=== PATIENT | female | born 1950 | race Caucasian/White ===

== ENCOUNTER → 2018-07-28 13:03 | Outpatient (CLI) | payer MEDICARE, SELFPAY ==
--- NOTE | 2018-07-28 | DI.RAD.S_ITS ---
PROCEDURE: XR KNEE RT 3V INDICATIONS: RIGHT KNEE PAIN TECHNIQUE: 3 views of the knee were acquired. COMPARISON: None. FINDINGS: Bones: No fractures or dislocations. No suspicious bony lesions. Soft tissues: Small joint effusion. No suspicious soft tissue calcifications. IMPRESSION: Small right knee joint effusion. No acute osseous abnormality of the right knee. Dictated by: Yared Akhtar M.D. on 07/28/2018 at 17:29 Approved by: Yared Akhtar M.D. on 07/28/2018 at 17:32
== END ==
PROVIDERS: Visit Provider Family Medicine
DX: M25.561 Pain in right knee (principal); M25.461 Effusion, right knee
CPT/HCPCS: 73562

== ENCOUNTER → 2018-12-04 14:07 | Outpatient (CLI) | payer MEDICARE, SELFPAY ==
[2018-12-04 15:05] LABS: Add Manual Diff / Slide Review NO; Basophils Percent Auto 0.8 % (0-2); Eosinophils Percent Auto 1.4 % (2-4); Hematocrit 42.4 % (36-46); Hemoglobin 14.2 g/dL (12.0-16.0); Lymphocytes Percent Auto 23.5 % (25-40); Mean Corpuscular HGB Conc 33.4 % (30-36); Mean Corpuscular Hemoglobin 31.4 PG (26-34); Monocytes Percent Auto 6.3 % (3-14); Neutrophils Absolute Auto 4100 /uL (1500-7000); Platelet Count 302 X10^3/uL (150-400); Red Blood Cell Count 4.51 X10^6/uL (4.0-5.2); Red Cell Distribution Width 14.4 % (11.6-14.8)
[2018-12-04 15:26] LABS: Alanine Aminotransferase 39 IU/L (9-52); Albumin 4.3 g/dL (3.5-5.0); Albumin Globulin Ratio 1.4 (1.0-2.8); Alkaline Phosphatase 85 U/L (38-126); Aspartate Aminotransferase 37 IU/L (14-36); Bilirubin Total 0.4 mg/dL (0.2-1.3); Blood Urea Nitrogen 18 mg/dL (7-17); Calcium 9.4 mg/dL (8.4-10.2); Carbon Dioxide 29 mmol/L (22-32); Chloride 104 mmol/L (98-107); Cholesterol 189 mg/dL (140-199); Globulin 3.1 g/dL (1.7-4.1); Glucose 88 mg/dL (80-110); HDL Cholesterol 55 mg/dL (40-60); HEMOLYSIS < 15 (0-50); LDL Cholesterol Calculated 112 mg/dL (<100); Potassium 4.2 mmol/L (3.4-5.1); Sodium 142 mmol/L (137-145); Total Protein 7.4 g/dL (6.3-8.2); Triglycerides 111 mg/dL (35-150)
[2018-12-04 15:42] LABS: Free T3, Triiodothyronine Free 4.49 pg/mL (2.77-5.27); Free T4, Direct Thyroxine 1.51 ng/dL (0.78-2.19)
== END ==
PROVIDERS: Family Provider Obstetrics & Gynecology; PCP Family Medicine; Visit Provider Family Medicine
DX: M85.80 Other specified disorders of bone density and structure, unspecified site (principal); Z13.220 Encounter for screening for lipoid disorders; E89.0 Postprocedural hypothyroidism
CPT/HCPCS: 36415; 80053; 80061; 84439; 84481; 85025